=== PATIENT | female | born 1980 | race Caucasian/White ===

== ENCOUNTER 2016-07-31 17:56 | Emergency (ER) | payer OTHER ==
[2016-07-31 18:01] VITALS: BP 142/96; PULSE 91; TEMP 98.8; BMI 31.1
[2016-07-31] MEDS ORDERED: ACETAMINOPHEN 325 MG TABLET (FP) PO ONE (18:28)
[2016-07-31 18:55] LABS: URINE APPEARANCE CLEAR; URINE BILIRUBIN NEGATIVE (NEGATIVE); URINE BLOOD NEGATIVE (NEGATIVE); URINE COLOR LTYELLOW; URINE GLUCOSE (UA) NEGATIVE (NEGATIVE); URINE KETONE NEGATIVE (NEGATIVE); URINE LEUK ESTERASE NEGATIVE (NEGATIVE); URINE NITRITE NEGATIVE (NEGATIVE); URINE PROTEIN NEGATIVE (NEGATIVE); URINE UROBILINOGEN NEGATIVE E.U./dl (0.2-1.0)
--- NOTE | 2016-07-31 18:59 | PDOC ---
History of Present Illness - General Chief Complaint: Cold Symptoms Stated Complaint: COLD SYMP Time Seen by Provider: 07/31/16 18:09 History Source: Patient Exam Limitations: No Limitations - History of Present Illness Initial Comments: 07/31/16 18:55 35 yr female with c/o chills, fever, sore throat, body aches started 2 days ago. Pt states body aches and fever started today. Severity: reports: mild Episode Description: cough, fever Past History - Past Medical History Allergies/Adverse Reactions: Allergies Allergy/AdvReac Type Severity Reaction Status Date / Time No Known Drug Allergies Allergy Verified 07/31/16 17:57 Home Medications: Ambulatory Orders Oseltamivir Phosphate [Tamiflu] 75 mg PO BID #10 capsule 07/31/16 Asthma: No Cancer: No Cardiac Disorders: No Diabetes: No HTN: Yes (elevated b/p md office) Seizures: No Thyroid Disease: No - Psycho/Social/Smoking Cessation Hx Anxiety: No Suicidal Ideation: No Smoking Status: No Smoking History: Never smoked Have you smoked in the past 12 months: No Number of Cigarettes Smoked Daily: 0 Information on smoking cessation initiated: No Hx Alcohol Use: No Drug/Substance Use Hx: No Substance Use Type: None Hx Substance Use Treatment: No Respiratory Specific PMHX - Complaint Specific PMHX Angina: No Bronchitis: No Pneumonia: No Pulmonary Embolus: No TB (Tuberculosis): No Review of Systems - Review of Systems Able to Perform ROS?: Yes Is the patient limited Amharic proficient: No Constitutional: Yes: Symptoms Reported, See HPI HEENTM: Yes: Symptoms Reported, See HPI Respiratory: Yes: Cough Cardiac (ROS): No: Symptoms Reported ABD/GI: No: Symptoms Reported : No: Symptoms Reported Musculoskeletal: Yes: Symptoms Reported, Back Pain Integumentary: No: Symptoms Reported Neurological: No: Symptoms reported *Physical Exam - Vital Signs Last Vital Signs Temp Pulse Resp BP Pulse Ox 98.8 F 91 H 18 142/96 100 07/31/16 17:58 07/31/16 17:58 07/31/16 17:58 07/31/16 17:58 07/31/16 17:58 - Physical Exam General Appearance: Yes: Nourished, Appropriately Dressed HEENT: positive: EOMI, CHAKA, TMs Normal, Pharyngeal Erythema, Nasal Congestion Neck: positive: Supple. negative: Tender, Lymphadenopathy (R), Lymphadenopathy (L) Respiratory/Chest: positive: Lungs Clear, Normal Breath Sounds. negative: Chest Tender Cardiovascular: positive: Regular Rhythm, Regular Rate Gastrointestinal/Abdominal: positive: Normal Bowel Sounds, Soft Musculoskeletal: positive: Normal Inspection Extremity: positive: Normal Capillary Refill, Normal Inspection, Normal Range of Motion Integumentary: positive: Normal Color, Dry, Warm Neurologic: positive: Fully Oriented, Alert, Normal Mood/Affect, Normal Response , Motor Strength 09/03 ED Treatment Course - Medications Given in the ED: ED Medications Discontinued Medications Generic Name Dose Route Start Last Admin Trade Name Freq PRN Reason Stop Dose Admin Acetaminophen 650 mg 07/31/16 18:28 07/31/16 18:41 Tylenol - PO 07/31/16 18:29 650 mg ONCE ONE Administration Medical Decision Making - Medical Decision Making 07/31/16 18:58 cc: fever, cough, sore throat, body aches will check for flu, rapid strep, UA tylenol for fever 07/31/16 18:59 flu b positive 07/31/16 19:15 *DC/Admit/Observation/Transfer Diagnosis at time of Disposition: Influenza B - Discharge Dispostion Disposition: HOME Condition at time of disposition: Good - Prescriptions Prescriptions: Oseltamivir Phosphate [Tamiflu] 75 mg PO BID #10 capsule - Patient Instructions Additional Instructions: drink pleanty of fluids start tamiflu as directed motrin 600mg every 6hrs for fever or pain rest at home wash hands frequently wear a mask at home around your family to avoid spreading it if you can follow with your doctor if not improving - Post Discharge Activity Work/School Note: Back to Work
== END 2016-07-31 19:37 | disposition home or self-care (01) ==
LOC: JERFT 17:56
DX: J10.1 Influenza due to other identified influenza virus with other respiratory manifestations (principal)
CPT/HCPCS: 81003; 84703; 87070; 87086; 87430; 87804; 99281-25

== ENCOUNTER 2016-08-06 08:18 | Emergency (ER) | payer OTHER ==
[2016-08-06 08:29] VITALS: BP 129/86; PULSE 78; TEMP 98.2; BMI 30.1
--- NOTE | 2016-08-06 08:48 | PDOC ---
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 no fever, or chills no abd pain. Associated Symptoms: reports: cough (dry) Past History - Past Medical History Allergies/Adverse Reactions: Allergies Allergy/AdvReac Type Severity Reaction Status Date / Time No Known Drug Allergies Allergy Verified 08/06/16 08:21 Home Medications: Ambulatory Orders Amoxicillin - [Amoxicillin 500mg Capsule -] 500 mg PO TID #21 capsule 08/06/16 Triamcinolone Acetonide [Nasacort] 10.8 ml NS DAILY #1 bottle 08/06/16 Asthma: No Cancer: No Cardiac Disorders: No Diabetes: No HTN: Yes (elevated b/p md office) Seizures: No Thyroid Disease: No Other medical history: DENIES. - Psycho/Social/Smoking Cessation Hx Anxiety: No Suicidal Ideation: No Smoking Status: No Smoking History: Never smoked Have you smoked in the past 12 months: No Number of Cigarettes Smoked Daily: 0 Hx Alcohol Use: No Drug/Substance Use Hx: No Substance Use Type: None Hx Substance Use Treatment: No Review of Systems - Review of Systems Able to Perform ROS?: Yes Is the patient limited Iranian proficient: No Constitutional: No: Symptoms Reported HEENTM: Yes: Symptoms Reported, Ear Pain, Throat Pain Respiratory: Yes: Cough (dry) Cardiac (ROS): No: Symptoms Reported ABD/GI: No: Symptoms Reported : No: Symptoms Reported Musculoskeletal: No: Symptoms Reported Integumentary: No: Symptoms Reported Neurological: No: Symptoms reported *Physical Exam - Vital Signs Last Vital Signs Temp Pulse Resp BP Pulse Ox 98.2 F 78 19 129/86 98 08/06/16 08:22 08/06/16 08:22 08/06/16 08:22 08/06/16 08:22 08/06/16 08:22 - Physical Exam General Appearance: Yes: Nourished, Appropriately Dressed HEENT: positive: EOMI, CHAKA, TMs Normal, Tonsillar Erythema (left), TM Dull ( left), TM Erythema, Other (post nasal drip ) Neck: positive: Supple Respiratory/Chest: positive: Lungs Clear, Normal Breath Sounds. negative: Chest Tender, Rhonchi, Stridor, Wheezing Cardiovascular: positive: Regular Rhythm, Regular Rate Gastrointestinal/Abdominal: positive: Normal Bowel Sounds, Soft Musculoskeletal: positive: Normal Inspection Extremity: positive: Normal Capillary Refill, Normal Inspection, Normal Range of Motion Integumentary: positive: Normal Color, Dry, Warm Neurologic: positive: Fully Oriented, Alert, Normal Mood/Affect, Normal Response , Motor Strength 5/5 Medical Decision Making - Medical Decision Making 08/06/16 08:46 cc: left ear pain, throat pain left jaw pain no dental pain or abscess dry cough took motrin 8am will swab for strep 08/06/16 09:07 *DC/Admit/Observation/Transfer Diagnosis at time of Disposition: Acute otitis media with effusion - Discharge Dispostion Disposition: HOME Condition at time of disposition: Good - Prescriptions Prescriptions: Amoxicillin - [Amoxicillin 500mg Capsule -] 500 mg PO TID #21 capsule Triamcinolone Acetonide [Nasacort] 10.8 ml NS DAILY #1 bottle - Referrals Referrals: Stiven Fregoso MD [Staff Physician] - - Patient Instructions Additional Instructions: negative rapid strep take Amoxicllin as directed for ear infection use the Nasacrot nose spray for congestion and post nasal drip drink pleanty of fluids take motrin as directed for pain follow with ENT if symptoms worsen or do not improve - Post Discharge Activity Work/School Note: Back to Work
== END 2016-08-06 09:32 | disposition home or self-care (01) ==
LOC: JERFT 08:18 → JER 08:18 → JERFT 09:32
DX: H65.192 Other acute nonsuppurative otitis media, left ear (principal)
CPT/HCPCS: 87070; 87430; 99281-25

== ENCOUNTER 2017-06-12 18:33 | Emergency (ER) | payer OTHER ==
[2017-06-12 18:41] VITALS: BP 132/90; PULSE 91; TEMP 98.9; BMI 32.8
[2017-06-12] MEDS ORDERED: ERYTHROMYCIN 0.5% OPHTHALMIC OINTMENT 3.5 GM TUBE OS ONE (19:15)
[2017-06-12] MEDS ORDERED: DIPHTH,PERTUSS(ACELL),TET 0.5 ML DISP.SYRIN IM ONE (19:17)
--- NOTE | 2017-06-12 19:21 | PDOC ---
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 Patient states vision was blurry for approximately 30 minutes and is gradually resolving. States has some mild pain, but no drainage from eye, mild photophobia. T Timing/Duration: 1-3 hours Severity: mild, moderate Past History - Past Medical History Allergies/Adverse Reactions: Allergies Allergy/AdvReac Type Severity Reaction Status Date / Time No Known Drug Allergies Allergy Verified 06/12/17 18:37 Home Medications: Ambulatory Orders Erythromycin 0.5% Eye Ointment [Erythromycin 0.5% Eye Ointment -] 1 applic OS [id number] #1 tube 06/12/17 Asthma: No Cancer: No Cardiac Disorders: No COPD: No Diabetes: No HTN: Yes (elevated b/p md office) Seizures: No Thyroid Disease: No - Suicide/Smoking/Psychosocial Hx Smoking Status: No Smoking History: Never smoked Have you smoked in the past 12 months: No Number of Cigarettes Smoked Daily: 0 Hx Alcohol Use: No Drug/Substance Use Hx: No Substance Use Type: None Hx Substance Use Treatment: No Review of Systems - Review of Systems Able to Perform ROS?: Yes Is the patient limited Slovenian proficient: Yes Constitutional: Yes: Symptoms Reported, See HPI. No: Fever, Malaise HEENTM: Yes: Symptoms Reported, See HPI, Eye Pain, Blurred Vision, Tearing. No : Recent change in vision Respiratory: No: Symptoms reported Cardiac (ROS): No: Symptoms Reported Musculoskeletal: No: Symptoms Reported All Other Systems: Reviewed and Negative *Physical Exam - Vital Signs Last Vital Signs Temp Pulse Resp BP Pulse Ox 98.9 F 91 H 19 132/90 100 06/12/17 18:38 06/12/17 18:38 06/12/17 18:38 06/12/17 18:38 06/12/17 18:38 - Physical Exam General Appearance: Yes: Appropriately Dressed, Apparent Distress HEENT: positive: CHAKA, Normal ENT Inspection, TMs Normal, Pharynx Normal, Other (fluorescein stain reveals no foreign body, no corneal abrasion, no globe injury , no hyphema.) Neck: negative: Tender Respiratory/Chest: positive: Lungs Clear, Normal Breath Sounds Musculoskeletal: positive: Normal Inspection Extremity: positive: Normal Capillary Refill Integumentary: positive: Normal Color, Dry, Warm Neurologic: positive: youth development professional II-XII NML intact, Fully Oriented, Alert, Normal Mood/ Affect, Normal Response, Motor Strength 5/5 *DC/Admit/Observation/Transfer Diagnosis at time of Disposition: Traumatic iritis - Discharge Dispostion Disposition: HOME Condition at time of disposition: Stable Admit: No - Referrals - Patient Instructions Printed Discharge Instructions: DI for Anterior Uveitis Additional Instructions: Rest, avoid rubbing eyes May use cool packs to sooth some tenderness Erythromycin ointment one application 3 times a day to affected eye for 5 days Avoid contact with others until redness and discharge is gone from eyes. Followup with ophthalmology or private physician tomorrow for thorough eye exam Tetanus/diphtheria/pertussis booster was updated today - Post Discharge Activity Forms/Work/School Notes: Back to Work
== END 2017-06-12 20:21 | disposition home or self-care (01) ==
LOC: JERFT 18:33
PROC: 3E0234Z Introduction of Serum, Toxoid and Vaccine into Muscle, Percutaneous Approach (ICD-10-PCS; principal; 2017-06-12)
DX: H20.9 Unspecified iridocyclitis (principal); W22.8XXA Striking against or struck by other objects, initial encounter; Y93.F9 Activity, other caregiving; Y92.238 Other place in hospital as the place of occurrence of the external cause; Y99.0 Civilian activity done for income or pay
CPT/HCPCS: 90715; 99281-25

== ENCOUNTER 2022-04-12 06:45 | Inpatient (IN) | payer BC ==
[2022-04-12 08:39] VITALS: BMI 38.4
[2022-04-12 09:30] LABS: BASO % 0.1 % (0-2.0); EOS % 1.1 % (0-4.5); HEMATOCRIT 39.1 % (32.4-45.2); LYMPH % 15.6 % (8-40); MCH 29.8 pg (25.7-33.7); MCHC 33.2 g/dl (32.0-36.0); MEAN CELL VOLUME 89.6 fl (80-96); MEAN PLT VOLUME 7.4 fl (7.5-11.1); MONO % 7.8 % (3.8-10.2); NEUT % 75.4 % (42.8-82.8); PLATELET COUNT 283 10^3/uL (134-434); RBC 4.36 M/mm3 (3.60-5.2); RDW 13.2 % (11.6-15.6); WHITE BLOOD COUNT 13.6 K/mm3 (4.0-10.0)
[2022-04-12 09:56] LABS: INR 0.93 (0.83-1.09); PROTHROMBIN TIME (PATIENT) 10.7 SEC (9.7-13.0)
[2022-04-12 09:57] LABS: ACTIVATED PTT 28.2 SECONDS (25.2-36.5)
[2022-04-12 10:07] LABS: CALCIUM 9.4 mg/dL (8.5-10.1)
[2022-04-12 10:08] LABS: BLOOD UREA NITROGEN 9.2 mg/dL (7-18)
[2022-04-12 10:11] LABS: CREATININE 0.6 mg/dL (0.55-1.3)
[2022-04-12] MEDS ORDERED: OXYTOCIN 30 UNITS in 0.9% NS 30 UNIT/500 ML INFUS.BAG IVPB ONE ×2 (10:12→20:56)
[2022-04-12 10:13] LABS: BILIRUBIN,TOTAL 0.5 mg/dL (0.2-1); TOT PROT 6.8 g/dl (6.4-8.2)
[2022-04-12] MEDS: ELECTROLYTE-148 SOLN 1,000 ML IV SCH ×3 (10:15→16:30)
[2022-04-12] MEDS ORDERED: DINOPROSTONE 10 MG VAGINAL SUPPOSITORY VG ONE (10:56)
[2022-04-12] MEDS ORDERED: FENTANYL/BUPIVACAINE/NS/PF - PCEA - 50 ML DISP.SYRIN EP ONE ×2 (15:23→19:47)
[2022-04-12] MEDS ORDERED: FENTANYL CITRATE/PF 50 MCG/ML VIAL ONE ×2 (15:34→20:28)
[2022-04-12] MEDS ORDERED: NALOXONE HCL 0.4 MG/ML VIAL IVPUSH PRN (17:03)
[2022-04-12] MEDS ORDERED: FENTANYL/BUPIVACAINE/NS/PF - PCEA - 50 ML DISP.SYRIN EP SCH ×3 (17:15→23:30)
[2022-04-12] MEDS ORDERED: hydrALAZINE HCL 20 MG/ML VIAL ONE ×2 (19:25→20:04)
[2022-04-12] MEDS ORDERED: MAGNESIUM 4GM/H20 - 4 GM/100 ML IVPB IVPB ONE (19:25)
[2022-04-12] MEDS ORDERED: hydrALAZINE HCL 20 MG/ML VIAL IVPUSH ONE ×2 (19:25→20:10)
[2022-04-12] MEDS ORDERED: AMPICILLIN - 2 GM in SODIUM CHLORIDE 100 ML IVPB ONE (19:30)
[2022-04-12] MEDS ORDERED: MAGNESIUM 4GM/H20 - 4 GM/100 ML IVPB IVPB SCH (19:30)
[2022-04-12] MEDS ORDERED: AMPICILLIN SODIUM 2 GM VIAL ONE (19:35)
[2022-04-12] MEDS: MAGNESIUM SULFATE 20GM/500ML - 20 GM/500 ML INFUS.BAG IVPB SCH (20:00)
[2022-04-12] MEDS ORDERED: MAGNESIUM SULFATE 20GM/500ML - 20 GM/500 ML INFUS.BAG ONE (20:04)
[2022-04-12] MEDS ORDERED: ceFAZolin SODIUM 1 GM VIAL ONE ×2 (21:11)
[2022-04-12] MEDS ORDERED: DEXAMETHASONE SOD PHOSPHATE 4 MG/1 ML VIAL ONE (21:11)
[2022-04-12] MEDS ORDERED: KETOROLAC TROMETHAMINE 30 MG/1 ML VIAL ONE (21:11)
[2022-04-12] MEDS ORDERED: ONDANSETRON 4 MG/2 ML VIAL ONE (21:11)
[2022-04-12] MEDS: OXYTOCIN 20 UNITS in 0.9% NS 20 UNIT/1,000 ML INFUS.BAG IV SCH (21:25)
[2022-04-12] MEDS ORDERED: morphine SULFATE/PF 1 MG/2 ML (2cc Syringe - QUVA) ONE (21:30)
[2022-04-12] MEDS ORDERED: ONDANSETRON 4 MG/2 ML VIAL IVPUSH PRN (21:44)
[2022-04-12] MEDS ORDERED: ACETAMINOPHEN 325 MG TABLET (FP) PO PRN (21:44)
[2022-04-12] MEDS ORDERED: OXYTOCIN 10 UNITS/ML VIAL ONE ×2 (21:48)
[2022-04-12] MEDS ORDERED: METHYLERGONOVINE MALEATE 0.2 MG/1 ML AMP IM PRN (22:07)
[2022-04-12] MEDS ORDERED: IBUPROFEN 600 MG TABLET (FP) PO PRN (22:07)
[2022-04-12] MEDS ORDERED: WITCH HAZEL 50% (TUCKS) 40 PAD/JAR PAD TP PRN (22:07)
[2022-04-12] MEDS ORDERED: BENZOCAINE 20% 57 GM BOTTLE TP PRN (22:07)
[2022-04-12] MEDS ORDERED: IBUPROFEN 800 MG/8 ML IJ IVPB PRN (22:07)
[2022-04-12] MEDS ORDERED: BENZOCAINE 28 GM HEMORRHOIDAL OINTMENT TP PRN (22:07)
[2022-04-12] MEDS ORDERED: CEFAZOLIN 1 GM in DEXTROSE 5%-WATER - 50 ML IVPB SCH (22:15)
[2022-04-12 22:26] LABS: CORD HCO3 20.8 mmHg (20-29); CORD PCO2 63.8 mmHg (30-78); CORD pH 7.131 (7.14-7.44)
[2022-04-12 22:29] LABS: CORD HCO3 21.1 mmHg (20-29); CORD PCO2 63.6 mmHg (30-78); CORD pH 7.138 (7.14-7.44)
[2022-04-13 02:17] LABS: BASO % 0.1 % (0-2.0); HEMATOCRIT 37.4 % (32.4-45.2); HEMOGLOBIN 12.6 GM/dL (10.7-15.3); LYMPH % 5.3 % (8-40); MCHC 33.6 g/dl (32.0-36.0); MEAN CELL VOLUME 89.3 fl (80-96); MEAN PLT VOLUME 6.8 fl (7.5-11.1); MONO % 5.8 % (3.8-10.2); NEUT % 88.8 % (42.8-82.8); PLATELET COUNT 261 10^3/uL (134-434); RBC 4.19 M/mm3 (3.60-5.2); RDW 13.4 % (11.6-15.6); WHITE BLOOD COUNT 19.3 K/mm3 (4.0-10.0)
[2022-04-13 02:38] LABS: ALBUMIN 2.5 g/dl (3.4-5.0); BLOOD UREA NITROGEN 8.8 mg/dL (7-18); CALCIUM 8.2 mg/dL (8.5-10.1); MAGNESIUM 4.4 mg/dL (1.8-2.4)
[2022-04-13 02:41] LABS: CREATININE 0.6 mg/dL (0.55-1.3); URIC ACID 7.2 mg/dL (2.6-7.2)
[2022-04-13 02:43] LABS: BILIRUBIN,TOTAL 0.4 mg/dL (0.2-1); TOT PROT 6.1 g/dl (6.4-8.2)
[2022-04-13] MEDS: ELECTROLYTE-148 SOLN 1,000 ML IV SCH ×2 (04:09→11:59)
[2022-04-13] MEDS ORDERED: ACETAMINOPHEN 325 MG TABLET (FP) ONE (05:40)
[2022-04-13] MEDS: ACETAMINOPHEN 325 MG TABLET (FP) PO PRN (05:40)
[2022-04-13] MEDS ORDERED: OXYTOCIN 20 UNITS in 0.9% NS 20 UNIT/1,000 ML INFUS.BAG IV ONE (06:23)
[2022-04-13] MEDS: OXYTOCIN 20 UNITS in 0.9% NS 20 UNIT/1,000 ML INFUS.BAG IV SCH (07:00)
[2022-04-13] MEDS ORDERED: MAGNESIUM SULFATE 20GM/500ML - 20 GM/500 ML INFUS.BAG ONE (07:53)
[2022-04-13 07:58] LABS: HEMATOCRIT 37.7 % (32.4-45.2); HEMOGLOBIN 12.5 GM/dL (10.7-15.3); MCH 29.8 pg (25.7-33.7); MCHC 33.2 g/dl (32.0-36.0); MEAN CELL VOLUME 89.7 fl (80-96); MEAN PLT VOLUME 7.1 fl (7.5-11.1); PLATELET COUNT 260 10^3/uL (134-434); RDW 13.5 % (11.6-15.6); WHITE BLOOD COUNT 20.4 K/mm3 (4.0-10.0)
[2022-04-13] MEDS: MAGNESIUM SULFATE 20GM/500ML - 20 GM/500 ML INFUS.BAG IVPB SCH (08:00)
[2022-04-13 08:03] LABS: MAGNESIUM 5.5 mg/dL (1.8-2.4)
[2022-04-13 08:55] LABS: ANISOCYTOSIS 0; HELMET CELLS 0; HOWELL-JOLLY BODIES 0; MACROCYTOSIS 0; OVALOCYTE 0; ROULEAU 0; SICKELED CELLS 0; TARGET CELLS 0; TEAR DROP CELLS 0; TOXIC GRANULATION 0
[2022-04-13] MEDS: ENOXAPARIN NA (PORCINE) 40 MG/0.4 ML DISP.SYRIN SQ SCH (09:44)
[2022-04-13] MEDS: PRENATAL VITAMINS W/ FOLIC ACID TABLET (FP) PO SCH (09:44)
[2022-04-13] MEDS ORDERED: oxyCODONE HCL 5 MG TABLET PO PRN ×2 (10:08)
[2022-04-13] MEDS: SIMETHICONE 80 MG TAB.CHEW (FP) PO PRN (19:53)
[2022-04-13] MEDS: IBUPROFEN 600 MG TABLET (FP) PO PRN (19:53)
[2022-04-13] MEDS ORDERED: BISACODYL 10 MG SUPP.RECT RC PRN (22:08)
[2022-04-14] MEDS: IBUPROFEN 600 MG TABLET (FP) PO PRN ×4 (01:23→17:21)
[2022-04-14] MEDS: SIMETHICONE 80 MG TAB.CHEW (FP) PO PRN ×5 (01:24→20:52)
[2022-04-14] MEDS: ENOXAPARIN NA (PORCINE) 40 MG/0.4 ML DISP.SYRIN SQ SCH (09:51)
[2022-04-14] MEDS: PRENATAL VITAMINS W/ FOLIC ACID TABLET (FP) PO SCH (09:51)
[2022-04-14] MEDS: ACETAMINOPHEN 325 MG TABLET (FP) PO PRN (19:59)
[2022-04-15] MEDS: IBUPROFEN 600 MG TABLET (FP) PO PRN (00:26)
[2022-04-15] MEDS: SIMETHICONE 80 MG TAB.CHEW (FP) PO PRN ×3 (00:27→23:19)
[2022-04-15 07:24] LABS: BASO % 0.5 % (0-2.0); EOS % 4.5 % (0-4.5); HEMATOCRIT 33.6 % (32.4-45.2); HEMOGLOBIN 11.1 GM/dL (10.7-15.3); LYMPH % 18.9 % (8-40); MCHC 33.1 g/dl (32.0-36.0); MEAN CELL VOLUME 90.4 fl (80-96); MEAN PLT VOLUME 6.7 fl (7.5-11.1); MONO % 8.3 % (3.8-10.2); NEUT % 67.8 % (42.8-82.8); PLATELET COUNT 286 10^3/uL (134-434); RBC 3.72 M/mm3 (3.60-5.2); RDW 13.3 % (11.6-15.6); WHITE BLOOD COUNT 11.6 K/mm3 (4.0-10.0)
[2022-04-15] MEDS: PRENATAL VITAMINS W/ FOLIC ACID TABLET (FP) PO SCH (09:27)
[2022-04-15] MEDS: ENOXAPARIN NA (PORCINE) 40 MG/0.4 ML DISP.SYRIN SQ SCH (09:27)
[2022-04-15 09:35] VITALS: RESP 18
[2022-04-15] MEDS: ACETAMINOPHEN 325 MG TABLET (FP) PO PRN ×2 (12:09→19:12)
[2022-04-15] MEDS: NIFEdipine E.R. 30 MG TABLET PO SCH (19:12)
[2022-04-16] MEDS: ACETAMINOPHEN 325 MG TABLET (FP) PO PRN (06:39)
[2022-04-16] MEDS: SIMETHICONE 80 MG TAB.CHEW (FP) PO PRN (06:39)
[2022-04-16 08:34] VITALS: TEMP 97.9
[2022-04-16] MEDS: PRENATAL VITAMINS W/ FOLIC ACID TABLET (FP) PO SCH (09:24)
[2022-04-16] MEDS: NIFEdipine E.R. 30 MG TABLET PO SCH (09:25)
[2022-04-16] MEDS: ENOXAPARIN NA (PORCINE) 40 MG/0.4 ML DISP.SYRIN SQ SCH (09:26)
[2022-04-16] MEDS: IBUPROFEN 600 MG TABLET (FP) PO PRN (09:26)
[2022-04-16 13:17] VITALS: BP 132/79; PULSE 77
== END 2022-04-16 13:21 | disposition home or self-care (01) | DRG 788 ==
LOC: JLDR 06:45 → J3W 04-13 11:30
PROVIDERS: ADMIT Obstetrics & Gynecology; ATTEND Obstetrics & Gynecology
PROC: 10D00Z1 Extraction of Products of Conception, Low, Open Approach (ICD-10-PCS; principal; 2022-04-12)
DX: O14.14 Severe pre-eclampsia complicating childbirth (principal); O13.4 Gestational [pregnancy-induced] hypertension without significant proteinuria, complicating childbirth; O99.213 Obesity complicating pregnancy, third trimester; O62.0 Primary inadequate contractions; Z3A.39 39 weeks gestation of pregnancy; Z37.0 Single live birth
CPT/HCPCS: 36415; 36600; 80053; 82803; 83735; 84550; 85025; 85610; 85730; 86780; 86850; 86900; 86901; 88307-TC; C9803-CS; U0003; U0005

== ENCOUNTER 2023-06-29 07:24 | Emergency (ER) | payer BC, OTHER ==
[2023-06-29 07:31] VITALS: BP 124/87; PULSE 97; RESP 18; TEMP 98.3; BMI 37.2
[2023-06-29] MEDS: HIV POST EXPOSURE PROPHYLAXIS KIT PO ONE (08:07)
[2023-06-29] MEDS ORDERED: HIV POST EXPOSURE PROPHYLAXIS KIT PO ONE (08:07)
[2023-06-29 08:35] LABS: BASO % 0.5 % (0-2.0); EOS % 2.1 % (0-4.5); HEMATOCRIT 41.1 % (32.4-45.2); HEMOGLOBIN 14.4 GM/dL (10.7-15.3); LYMPH % 25.9 % (8-40); MCH 30.5 pg (25.7-33.7); MEAN CELL VOLUME 87.1 fl (80-96); MEAN PLT VOLUME 6.7 fl (7.5-11.1); NEUT % 63.5 % (42.8-82.8); PLATELET COUNT 331 10^3/uL (134-434); RBC 4.72 M/mm3 (3.60-5.2); RDW 13.2 % (11.6-15.6); WHITE BLOOD COUNT 10.9 K/mm3 (4.0-10.0)
[2023-06-29 08:50] LABS: CALCIUM 8.9 mg/dL (8.5-10.1)
[2023-06-29 08:51] LABS: ALBUMIN 3.9 g/dl (3.4-5.0)
[2023-06-29 08:52] LABS: BLOOD UREA NITROGEN 20.3 mg/dL (7-18)
[2023-06-29 08:53] LABS: URIC ACID 4.5 mg/dL (2.6-7.2)
[2023-06-29 08:54] LABS: CREATININE 0.7 mg/dL (0.55-1.3)
[2023-06-29 08:55] LABS: PHOSPHOROUS 3.8 mg/dL (2.5-4.9); TOT PROT 7.7 g/dl (6.4-8.2)
[2023-06-29 08:58] LABS: BILIRUBIN,TOTAL 0.3 mg/dL (0.2-1)
[2023-06-29 11:21] LABS: HIV INTERPRETATION NEGATIVE (NEGATIVE)
== END 2023-06-29 09:06 | disposition home or self-care (01) ==
LOC: JERFT 07:24 → JER 07:24 → JERFT 09:06
DX: Z77.21 Contact with and (suspected) exposure to potentially hazardous body fluids (principal)
CPT/HCPCS: 36415; 80053; 82465; 82977; 83615; 84100; 84478; 84550; 84702; 85025; 86704; 86803; 87340; 87389; 87517; 99283-25